=== PATIENT | male | born 1950 | race Two or more races ===

== ENCOUNTER → 2021-03-24 | Emergency (ER) | payer OTHER ==
[~2021-03-24] VITALS: Ht 172.7 cm; Wt 103.0 kg
[~2021-03-24] MED LIST: ALBU17AE26 IH; ASPI-858 PO; BACITRACIN 1 GM OINT TP ONE; BUPR75TA8 PO; CEFEPIME 1 GM in D5W 50 ML IV ONE; CEFEPIME 1 GM/VIAL (MAXIPIME) ONE; IPRA0.2S6 IH; MECLIZINE HCL 25 MG TABLET (ANITVERT) PO ONE; METH10TA4 PO; NACL 0.9% 1,000 ML IV ONE; NS 500 ML IV ONE; PRO10 PO; cefTRIAXone 1 GM in D5W 50 ML IV ONE
[2021-03-24 23:25] VITALS: BP_SYST 99
[2021-03-25 00:10] LABS: EOSINOPHILS # (AUTO) 0.1 K/uL (0.0-0.4); HEMATOCRIT 28.9 % (36-54); RED CELL DISTRIBUTION WIDTH 13.5 % (9.0-15.0)
[2021-03-25 00:18] LABS: ANION GAP 10 (5-15); BASOPHILS % (AUTO) 0.3 % (0.0-2.0); CALCIUM 7.8 mg/dL (8.4-11.0); CHLORIDE 98 mmol/L (98-107); CREATININE 1.87 mg/dL (0.55-1.30); EOSINOPHILS % (AUTO) 0.8 % (0.0-4.0); GLUCOSE 104 mg/dL (70-99); LYMPHOCYTES # (AUTO) 1.9 K/uL (1.0-5.5); LYMPHOCYTES % (AUTO) 27.7 % (20.5-51.5); MEAN CORPUSCULAR HEMOGLOBIN 32 pg (27-31); MEAN CORPUSCULAR HGB CONC 35 % (32-36); MEAN CORPUSCULAR VOLUME 94 fL (79.0-98.0); MONOCYTES # (AUTO) 0.8 K/uL (0.0-1.0); MONOCYTES % (AUTO) 11.6 % (1.7-9.3); NEUTROPHILS # (AUTO) 4.2 K/uL (1.8-7.7); NEUTROPHILS % (AUTO) 59.6 % (40.0-70.0); PLATELET COUNT (AUTO) 235 K/uL (130-430); POTASSIUM 3.9 mmol/L (3.5-5.1); RED BLOOD CELL COUNT(AUTO) 3.07 MIL/uL (4.2-6.2); SODIUM SERUM 130 mmol/L (136-145); UREA NITROGEN, BLOOD 24 mg/dL (8-21)
[2021-03-25 00:24] LABS: ALANINE AMINOTRANSFERASE 25 U/L (12-78); ALBUMIN 2.5 g/dL (3.4-4.8); ASPARTATE AMINOTRANSFERASE 41 U/L (10-37); TOTAL BILIRUBIN 0.5 mg/dL (0.0-1.0)
[2021-03-25 03:08] LABS: BILIRUBIN,URINE NEGATIVE (NEGATIVE); BLOOD, URINE 2+ (NEGATIVE); CLARITY/URINE CLEAR (CLEAR); COLOR,URINE YELLOW (YELLOW); GLUCOSE,URINE NEGATIVE (NEGATIVE); KETONES,URINE NEGATIVE (NEGATIVE); LEUKOCYTE ESTERASE ,URINE 3+ (NEGATIVE); NITRITE, URINE POSITIVE (NEGATIVE); PH,URINE 5.5 (5.0-8.0); PROTEIN URINE NEGATIVE (NEGATIVE); UROBILINOGEN,URINE 0.2 (0.2-1.0)
[2021-03-25 03:19] LABS: BACTERIA,URINE MODERATE /HPF (None Seen); WBC,URINE 20-50 /HPF (0-3)
[2021-03-25 06:23] LABS: HEMATOCRIT 30.6 % (36-54); HEMOGLOBIN 10.4 g/dL (14.0-18.0); MEAN CORPUSCULAR HEMOGLOBIN 32 pg (27-31); MEAN CORPUSCULAR HGB CONC 34 % (32-36); MEAN CORPUSCULAR VOLUME 95 fL (79.0-98.0); PLATELET COUNT (AUTO) 232 K/uL (130-430); RED BLOOD CELL COUNT(AUTO) 3.22 MIL/uL (4.2-6.2); RED CELL DISTRIBUTION WIDTH 13.4 % (9.0-15.0); WHITE BLOOD COUNT (AUTO) 7.2 K/uL (4.8-10.8)
[2021-03-25 06:37] LABS: PROTHROMBIN TIME 10.2 SECS (9.5-12.5)
[2021-03-25 11:54] VITALS: BP_SYST 106
== END | disposition short-term general hospital (02) ==
LOC: SED 23:21
DX: K92.2 Gastrointestinal hemorrhage, unspecified (principal); D62 Acute posthemorrhagic anemia; N39.0 Urinary tract infection, site not specified; I95.9 Hypotension, unspecified; I10 Essential (primary) hypertension; J45.909 Unspecified asthma, uncomplicated; Z79.899 Other long term (current) drug therapy; Z20.822 Contact with and (suspected) exposure to COVID-19
CPT/HCPCS: 36415; 80053; 81000; 83051; 83605; 85014; 85025; 85048; 85049-TC; 85610-TC; 86886; 86900; 86901; 87040-TC; 87086; 96361; 96365; 99291; J0692; J7030; J8597

== ENCOUNTER 2022-09-30 23:43 | Emergency (ER) | payer MEDICARE ==
[~2022-09-30] VITALS: Ht 172.7 cm; Wt 79.4 kg
[~2022-09-30 23:43] MED LIST changes: -BACITRACIN 1 GM OINT TP ONE; -CEFEPIME 1 GM in D5W 50 ML IV ONE; -CEFEPIME 1 GM/VIAL (MAXIPIME) ONE; -MECLIZINE HCL 25 MG TABLET (ANITVERT) PO ONE; -NACL 0.9% 1,000 ML IV ONE; -NS 500 ML IV ONE; -cefTRIAXone 1 GM in D5W 50 ML IV ONE
[2022-09-30 23:52] VITALS: BP_SYST 122
--- NOTE | 2022-09-30 23:58 | NUR ---
Patient to ER bed 06 to gown for evaluation. Side rails up. Report given to MANA BEAVER.
--- NOTE | 2022-10-01 00:05 | NUR ---
Dr. Portillo at bedside examining the patient.
--- NOTE | 2022-10-01 00:07 | NUR ---
# 20 gauge angiocath placed to LAC. Use of asceptic technique. Opsite placed over site. Blood return noted. Blood for lab drawn from site. Flushed with 10 cc of normal saline. No evidence of infiltration noted. Patient tolerated well.
--- NOTE | 2022-10-01 00:18 | NUR ---
Patient taken to CT.
[2022-10-01 00:30] LABS: BASOPHILS % (AUTO) 0.2 % (0.0-2.0); EOSINOPHILS # (AUTO) 0.2 K/uL (0.0-0.4); EOSINOPHILS % (AUTO) 1.8 % (0.0-4.0); HEMOGLOBIN 11.7 g/dL (14.0-18.0); LYMPHOCYTES % (AUTO) 24.5 % (20.5-51.5); MEAN CORPUSCULAR HEMOGLOBIN 31 pg (27-31); MEAN CORPUSCULAR HGB CONC 33 % (32-36); MEAN CORPUSCULAR VOLUME 94 fL (79.0-98.0); MONOCYTES # (AUTO) 0.9 K/uL (0.0-1.0); MONOCYTES % (AUTO) 10.4 % (1.7-9.3); NEUTROPHILS # (AUTO) 5.3 K/uL (1.8-7.7); NEUTROPHILS % (AUTO) 63.1 % (40.0-70.0); PLATELET COUNT (AUTO) 182 K/uL (130-430); RED BLOOD CELL COUNT(AUTO) 3.74 MIL/uL (4.2-6.2); WHITE BLOOD COUNT (AUTO) 8.4 K/uL (4.8-10.8)
[2022-10-01 00:37] LABS: ANION GAP 11 (5-15); CALCIUM 9.1 mg/dL (8.4-11.0); CHLORIDE 106 mmol/L (98-107); CREATININE 1.19 mg/dL (0.55-1.30); GLUCOSE 135 mg/dL (70-99); UREA NITROGEN, BLOOD 39 mg/dL (8-21)
[2022-10-01 00:45] LABS: ALANINE AMINOTRANSFERASE 20 U/L (12-78); ALBUMIN 3.3 g/dL (3.4-4.8); ASPARTATE AMINOTRANSFERASE 23 U/L (10-37); TOTAL BILIRUBIN 0.2 mg/dL (0.0-1.0)
--- NOTE | 2022-10-01 07:14 | NUR ---
Report given and care transferred to [facility] for continuity of care.
[2022-10-01] MEDS ORDERED: ACETAMINOPHEN 500 MG TABLET PO ONE (09:45)
[2022-10-01 11:44] VITALS: BP_SYST 115
--- NOTE | 2022-10-01 11:47 | NUR ---
Patient to be transferred to [facility]. Receiving facility has accepting physician and available space. ER physician has signed transfer form. Patient or responsible green party has agreed to transfer and signed form. Patient belongings inventoried and will be sent with patient. Copy of nursing notes, lab reports, EKG, Physicians Orders and X-rays to be sent with patient. Report called to SANDY at receiving facility. Receiving physician is DR QUINTERO. A ambulance service has been called for transfer. ETA is [id number].
== END 2022-10-01 11:45 | disposition short-term general hospital (02) ==
LOC: SED 23:43
DX: R55 Syncope and collapse (principal); R51.9 Headache, unspecified; M54.2 Cervicalgia; J45.909 Unspecified asthma, uncomplicated; I10 Essential (primary) hypertension; Z79.899 Other long term (current) drug therapy; Z20.822 Contact with and (suspected) exposure to COVID-19
CPT/HCPCS: 36415; 70450-TC; 71045; 72125-TC; 76376; 80053; 83880; 84484; 85025; 93005; 99285